=== PATIENT | female | born 2000 | race Caucasian/White ===

== ENCOUNTER 2020-03-28 12:18 | Outpatient (CLI) | payer OTHER, SELFPAY ==
[2020-03-28 13:33] LABS: Basophils Percent Auto 0.4 % (0.2-1.2); Eosinophils Absolute Auto 0.2 K/mm3 (0-0.3); Eosinophils Percent Auto 2.2 % (0-4.4); Hematocrit 38.5 % (37.0-47.0); Hemoglobin 13.2 g/dL (12.0-15.0); Immature Granulocyte Absolute 0.01 K/mm3 (0.00-0.031); Immature Granulocyte Percent A 0.1 % (0-0.5); Lymphocytes Absolute Auto 2.44 K/mm3 (0.9-3.2); Lymphocytes Percent Auto 35.4 % (18.3-44.2); Mean Corpuscular HGB Conc 34.3 g/dl (32-36); Mean Corpuscular Hemoglobin 28.6 pg (26-34); Mean Corpuscular Volume 83.5 fl (80-100); Mean Platelet Volume 9.8 fl (7.4-10.4); Monocytes Absolute Auto 0.5 K/mm3 (0.1-0.6); Monocytes Percent Auto 6.7 % (2.6-8.5); Neutrophils Absolute Auto 3.8 K/mm3 (1.3-6.7); Neutrophils Percent Auto 55.2 % (45.5-73.1); Platelet Count Result 307 k/mm3 (150-375); Red Blood Count 4.61 M/mm3 (4.2-5.4); Red Cell Distribution Width 12.5 % (11.5-14.5); White Blood Count 6.9 K/mm3 (4.5-10.0)
[2020-03-28 13:44] LABS: Alanine Aminotransferase 15 U/L (4-35); Albumin Level 4.6 g/dL (3.7-5.6); Alkaline Phosphatase 54 U/L (45-116); Aspartate Amino Transferase 25 U/L (14-36); Bilirubin,Total 0.4 mg/dL (0.2-1.3); Blood Urea Nitrogen 10 mg/dL (8-21); Calcium 9.3 mg/dL (8.9-10.7); Carbon Dioxide 25 mmol/L (22-30); Chloride 103 mmol/L (98-107); Cholesterol 187 mg/dL (0-200); Estimated Glomerular Filt Rate > 60; Glucose 82 mg/dL (65-105); HDL Direct 80 mg/dL; Potassium 3.7 mmol/L (3.4-5.0); Sodium 137 mmol/L (134-143); Triglycerides 107 mg/dL (<150)
[2020-03-28 13:48] LABS: Hemoglobin A1C 5.5 % (<5.7)
[2020-03-28 13:55] LABS: LDL Cholesterol Direct 88 mg/dL
[2020-03-28 14:39] LABS: Free T4 Free Thyroxine 1.05 ng/mL (0.78-2.19)
== END 2020-03-28 12:19 | disposition home or self-care (01) ==
PROVIDERS: PCP Internal Medicine; Visit Provider Internal Medicine
DX: Z00.00 Encounter for general adult medical examination without abnormal findings (principal)
CPT/HCPCS: 36415; 80053; 80061; 83036; 84439; 84443; 85025

== ENCOUNTER 2020-08-06 10:21 | Outpatient (NON) | payer OTHER, SELFPAY ==
[2020-08-07 13:52] LABS: SARS-CoV-2 RNA PCR Positive
== END 2020-08-06 10:22 ==
PROVIDERS: PCP Internal Medicine; Visit Provider Internal Medicine
DX: U07.1 COVID-19 (principal)
CPT/HCPCS: 87635; C9803; U0003

== ENCOUNTER 2021-01-09 13:46 | Outpatient (CLI) | payer OTHER, SELFPAY | END 2021-01-09 13:47 | disposition home or self-care (01) | LOC: ANHCOVIDVC 13:46 | PROVIDERS: PCP Internal Medicine | DX: Z23 Encounter for immunization (principal) | CPT/HCPCS: 0001A; 91300 ==

== ENCOUNTER 2021-01-30 13:33 | Outpatient (CLI) | payer OTHER, SELFPAY | END 2021-01-30 13:34 | disposition home or self-care (01) | LOC: ANHCOVIDVC 13:33 | PROVIDERS: PCP Internal Medicine | DX: Z23 Encounter for immunization (principal) | CPT/HCPCS: 0002A; 91300 ==

== ENCOUNTER 2021-09-08 17:00 | Outpatient (CLI) | payer OTHER, SELFPAY ==
[2021-09-08 17:23] LABS: Add Urine Microscopic? NO; Appearance Urine Clear (Clear); Bilirubin Urine Negative (Negative); Blood Urine Negative (Negative); Color Urine Yellow (Yellow); Glucose Urine UA Negative (Negative); Ketones Urine Negative (Negative); Leukocyte Esterase Ur Negative LEU/UL (Negative); Nitrate Urine Negative (Negative); Protein Urine Negative (Negative); Specific Grav Ur 1.012 (1.001-1.035); Urobilinogen Urine Negative mg/dL (<2.0)
[2021-09-08 18:04] LABS: Basophils Percent Auto 0.3 % (0.2-1.2); Eosinophils Absolute Auto 0.1 K/mm3 (0-0.3); Eosinophils Percent Auto 1.4 % (0-4.4); Hematocrit 39.2 % (37.0-47.0); Hemoglobin 13.3 g/dL (12.0-15.0); Immature Granulocyte Absolute 0.02 K/mm3 (0.00-0.031); Immature Granulocyte Percent A 0.2 % (0-0.5); Lymphocytes Absolute Auto 3.18 K/mm3 (0.9-3.2); Lymphocytes Percent Auto 31.2 % (18.3-44.2); Mean Corpuscular HGB Conc 33.9 g/dl (32-36); Mean Corpuscular Hemoglobin 28.2 pg (26-34); Mean Corpuscular Volume 83.1 fl (80-100); Mean Platelet Volume 9.4 fl (7.4-10.4); Monocytes Absolute Auto 0.6 K/mm3 (0.1-0.6); Monocytes Percent Auto 6.3 % (2.6-8.5); Neutrophils Absolute Auto 6.2 K/mm3 (1.3-6.7); Neutrophils Percent Auto 60.6 % (45.5-73.1); Platelet Count Result 390 k/mm3 (150-375); Red Blood Count 4.72 M/mm3 (4.2-5.4); Red Cell Distribution Width 12.2 % (11.5-14.5); White Blood Count 10.2 K/mm3 (4.5-10.0)
[2021-09-08 18:27] LABS: Hemoglobin A1C 5.3 % (<5.7)
[2021-09-08 18:29] LABS: Alanine Aminotransferase 19 U/L (4-35); Albumin Level 5.1 g/dL (3.5-5.1); Alkaline Phosphatase 52 U/L (38-126); Anion Gap 11 mmol/L (8-16); Aspartate Amino Transferase 29 U/L (14-36); Bilirubin,Total 0.4 mg/dL (0.2-1.3); Blood Urea Nitrogen 12 mg/dL (7-17); Calcium 9.7 mg/dL (8.4-10.2); Carbon Dioxide 25 mmol/L (22-30); Chloride 100 mmol/L (98-107); Cholesterol 243 mg/dL (0-200); Estimated Glomerular Filt Rate > 60; Glucose 94 mg/dL (65-110); Potassium 3.5 mmol/L (3.4-5.0); Sodium 136 mmol/L (137-145); Triglycerides 122 mg/dL (<150)
[2021-09-08 18:55] LABS: Free T4 Free Thyroxine 1.16 ng/mL (0.78-2.19)
[2021-09-08 19:00] LABS: LDL Cholesterol Direct 103 mg/dL
[2021-09-08 19:08] LABS: HDL Direct 118 mg/dL
[2021-09-13 18:57] LABS: Gliadin AB, IgG <1.0 U/mL (<15.0); Reticulin IgA Negative (Negative); TTG IGA AB <1.0 U/mL (<15.0)
== END 2021-09-08 17:01 | disposition home or self-care (01) ==
LOC: ANHLAB 17:03
PROVIDERS: PCP Internal Medicine; Visit Provider Internal Medicine
DX: R10.9 Unspecified abdominal pain (principal); Z79.899 Other long term (current) drug therapy
CPT/HCPCS: 36415; 80053; 80061; 81003; 83036; 83516; 84439; 84443; 85025; 86255

== ENCOUNTER 2021-10-06 09:46 | Outpatient (CLI) | payer OTHER, SELFPAY ==
--- NOTE | ~2021-10-06 | US_ITS ---
EXAMINATION: US pelvic complete w TV EXAM DATE: 10/06/2021 12:19 INDICATION: R10.2 - Pelvic and perineal pain TECHNIQUE: Pelvic transabdominal and transvaginal sonogram was performed. There are multiple graysca le and Doppler images available for interpretation. There is no prior study for comparison. FINDINGS: Uterus measures 6.7 x 4.5 x 2.3 cm, is anteverted and morphologically normal. Endometrial stripe measures 2 mm, within normal limits. There is no free pelvic fluid. Right adnexa: The ovary measures 3.1 x 2.2 x 1.4 cm and is morphologically normal. Ovarian vascular f low confirmed. Left adnexa: The ovary measures 3.3 x 2.6 x 2.2 cm and is morphologically normal. Ovarian vascular fl ow confirmed. IMPRESSION: 1. Unremarkable pelvic ultrasound exam. Reviewed, dictated and finalized at location B. ESS CAMERA OPERATOR
--- NOTE | ~2021-10-06 | US_ITS ---
EXAMINATION: US abdomen complete EXAM DATE: 10/06/2021 10:40 INDICATION: R10.9 - Unspecified abdominal pain. TECHNIQUE: Multiple grayscale and Doppler images of the complete abdomen were obtained (by a technolo gist who performed the scan) and subsequently reviewed. There is no prior study for comparison. FINDINGS: The abdominal aorta is normal in caliber. Visualized portion IVC is patent. The pancreatic head a nd body are normal in appearance. The pancreatic tail is not visualized. The liver has normal echogenicity and contour. There are no focal liver lesions identified. There is no evidence of intrahepatic biliary duct dilation. Portal venous flow was seen in the hepatopedal , normal direction and has normal Doppler waveform. Common bile duct measures 2 mm, which is normal. The gallbladder wall is normal in thickness, with ex pected amount of distention. No sonographic evidence of pericholecystic fluid. There is no cholelit hiases. Technologist performing exam reports patient did not demonstrate sonographic Zhou's sign. Please note that this sign is less reliable in patients who have received pain medication. Right kidney: There is normal contour and echogenicity. It measures 12.5 x 5.8 x 3.6 centimeters. There are no focal renal lesions identified. There is no hydronephrosis. Left kidney: There is normal contour and echogenicity. It measures 12.5 x 3.9 x 5.3 centimeters. T here are no focal renal lesions identified. There is no hydronephrosis. The spleen measures 9.4 centimeters and is morphologically normal. IMPRESSION: Unremarkable complete abdominal ultrasound exam. Reviewed, dictated and finalized at location B. ER OPERATOR
== END 2021-10-06 09:47 | disposition home or self-care (01) ==
LOC: ANHIMG 09:47
PROVIDERS: PCP Internal Medicine; Visit Provider Internal Medicine
DX: R10.9 Unspecified abdominal pain (principal)
CPT/HCPCS: 76700; 76830; 76856

== ENCOUNTER 2021-10-19 12:09 | Outpatient (CLI) | payer OTHER, SELFPAY ==
[2021-10-19 14:56] LABS: Influenza A QL RT-PCR Negative (Negative); Influenza B QL RT-PCR Negative (Negative); SARS-CoV-2 RNA PCR Negative (Negative)
== END 2021-10-19 12:10 | disposition home or self-care (01) ==
LOC: CHSLAB 12:11
PROVIDERS: PCP Internal Medicine; Visit Provider Internal Medicine
DX: R68.89 Other general symptoms and signs (principal); Z20.822 Contact with and (suspected) exposure to COVID-19
CPT/HCPCS: 87502; C9803; U0003; U0005

== ENCOUNTER 2022-02-15 17:21 | Outpatient (CLI) | payer OTHER, SELFPAY ==
[2022-02-17 15:41] LABS: NIL 0.01 IU/mL; Quantiferon TB Plus, 1T NEGATIVE (NEGATIVE)
== END 2022-02-15 17:22 | disposition home or self-care (01) ==
PROVIDERS: PCP Internal Medicine; Visit Provider Internal Medicine
DX: Z11.1 Encounter for screening for respiratory tuberculosis (principal)
CPT/HCPCS: 36415; 86480

== ENCOUNTER 2023-03-07 13:43 | Outpatient (CLI) | payer OTHER, SELFPAY ==
[2023-03-07 14:51] LABS: Basophils Percent Auto 0.5 % (0.2-1.2); Eosinophils Absolute Auto 0.1 K/mm3 (0-0.3); Hematocrit 40.1 % (37.0-47.0); Immature Granulocyte Absolute 0.02 K/mm3 (0.00-0.031); Immature Granulocyte Percent A 0.2 % (0-0.5); Lymphocytes Absolute Auto 2.35 K/mm3 (0.9-3.2); Lymphocytes Percent Auto 26.6 % (18.3-44.2); Mean Corpuscular HGB Conc 32.4 g/dl (32-36); Mean Corpuscular Hemoglobin 27.5 pg (26-34); Mean Platelet Volume 9.9 fl (7.4-10.4); Monocytes Absolute Auto 0.5 K/mm3 (0.1-0.6); Monocytes Percent Auto 5.9 % (2.6-8.5); Neutrophils Absolute Auto 5.8 K/mm3 (1.3-6.7); Neutrophils Percent Auto 65.8 % (45.5-73.1); Platelet Count Result 403 k/mm3 (150-375); Red Blood Count 4.72 M/mm3 (4.2-5.4); Red Cell Distribution Width 13.3 % (11.5-14.5); White Blood Count 8.8 K/mm3 (4.5-10.0)
[2023-03-07 16:03] LABS: LDL Cholesterol Direct 78 mg/dL
[2023-03-07 16:18] LABS: Alanine Aminotransferase 22 U/L (6-35); Albumin Level 4.5 g/dL (3.5-5.1); Alkaline Phosphatase 53 U/L (38-126); Anion Gap 9 mmol/L (8-16); Aspartate Amino Transferase 30 U/L (14-36); Bilirubin,Total 0.5 mg/dL (0.2-1.3); Blood Urea Nitrogen 15 mg/dL (7-17); Calcium 8.6 mg/dL (8.4-10.2); Carbon Dioxide 27 mmol/L (22-30); Chloride 101 mmol/L (98-107); Cholesterol 204 mg/dL (0-200); Estimated Glomerular Filt Rate > 60; Glucose 84 mg/dL (65-110); Potassium 4.1 mmol/L (3.4-5.0); Sodium 137 mmol/L (137-145); Triglycerides 102 mg/dL (<150)
[2023-03-07 16:30] LABS: Free T4 Free Thyroxine 1.15 ng/mL (0.78-2.19); Vitamin D 25 Hydroxy 50.1 ng/mL
[2023-03-07 18:44] LABS: HDL Direct 112 mg/dL
[2023-03-07 22:53] LABS: Hemoglobin A1C 5.5 % (<5.7)
[2023-03-11 14:18] LABS: NIL 0.03 IU/mL; Quantiferon TB Plus, 1T NEGATIVE (NEGATIVE); TB1-NIL 0.02 IU/mL; TB2-NIL 0.02 IU/mL
== END 2023-03-07 13:44 | disposition home or self-care (01) ==
PROVIDERS: PCP Internal Medicine; Visit Provider Internal Medicine
DX: R53.83 Other fatigue (principal); R35.89 Other polyuria; Z11.1 Encounter for screening for respiratory tuberculosis; Z79.899 Other long term (current) drug therapy
CPT/HCPCS: 36415; 80053; 80061; 82306; 82607; 82746; 83036; 84439; 84443; 85025; 86480

== ENCOUNTER 2023-06-06 11:59 | Outpatient (CLI) | payer OTHER, SELFPAY ==
[2023-06-06 12:49] LABS: CRP 0.5 mg/dL (<1.0)
[2023-06-11 20:56] LABS: ANCA Screen Negative (Negative); Myeloperoxidase Ab <1.0 AI (<1.0); Proteinase-3 Ab <1.0 AI (<1.0); S cerevisiae Ab (IgA) 11.5 U (<=20.0); S cerevisiae Ab (IgG) 11.3 U (<=20.0)
[2023-06-14 09:27] LABS: Calprotectin, Stool 33
== END 2023-06-06 12:00 | disposition home or self-care (01) ==
PROVIDERS: PCP Internal Medicine; Visit Provider Internal Medicine Gastroenterology
DX: R19.7 Diarrhea, unspecified (principal)
CPT/HCPCS: 36415; 83993; 86036; 86140; 86671

== ENCOUNTER 2023-07-01 04:29 | Day surgery (SDC) | payer OTHER, SELFPAY ==
[2023-06-16 16:06] VITALS: BMI 20.3
--- NOTE | 2023-06-30 20:04 | PM.HPGS ---
History of Present Illness History of Present Illness Consent: Risks, benefits, and alternatives have been discussed and questions answered. Patient agrees to proceed with procedure. Chief complaint: abdominal pain Narrative: Shwetha Bridges is a 22 year old female who has been troubled with several gastro intestinal issues.? Tender in the epigastric area almost every day all day.? It is sensitive to the touch.? Sometimes she is more uncomfortable if she eats spicy foods.? She does not vomit.? Her weight has been stable.? She also has pains in the upper abdomen--a gas, bloating discomfort which seems to be more on the right side than the left.? It will double her over at times.? When this occurs which may or may not be related to meals she will then had the urge to have a bowel movement which is usually diarrhea, sometimes explosive.? There is no blood her stools. Review of Systems Review of Systems: All systems reviewed & are unremarkable except as noted in HPI and below PMFSH Past Medical History Medical History Abdominal pain BMI 20.0-20.9, adult Diarrhea Flatulence/gas pain/belching Loose stools On senior care drug therapy Pelvic pain Persistent headaches Routine adult health maintenance Stomach pain Tuberculosis screening Visual field [place] Family History Family History Mother Hyperlipidemia Atrial fibrillation, controlled Social History Social History Smoking status: Never smoker Second hand tobacco smoke exposure: No Alcohol intake: current Drinks per week: 2 Substance use: never Substance use type: does not use Lack of Transportation: No Lack of Food: Never True Current Housing: I Have Housing Concerned About Future Housing: No Difficulty Paying Gas/Electric Bills: No Difficulty Paying for Meds: No Education: High School Diploma/GED Difficulty w/ Childcare or Family Care: No Living arrangements: with family Occupation/Education: occupation Gender identity (if verbalized by the patient): Female Sexual Orientation (if Verbalized by the Patient): Straight or Heterosexual Spiritual care concerns: No Meds Home Medications and Allergies Home Medications Medication Instructions Recorded Confirmed Type adapalene 0.1 %-benzoyl peroxide See Rx Instructions .Route 10/08/22 06/16/23 Rx 2.5 % topical gel with pump .COMPLEX #45 grams drospirenone 3 mg-ethinyl 1 tablet PO DAILY 06/16/23 06/16/23 History estradiol 0.03 mg tablet sertraline 50 mg tablet 50 mg PO DAILY 06/16/23 06/16/23 History tretinoin 0.05 % topical gel 1 applic topical QHS #45 grams 06/22/23 Rx Allergies Allergy/AdvReac Type Severity Reaction Status Date / Time No Known Allergies Allergy Verified 07/01/23 12:56 Exam Const: General: alert Orientation/consciousness: patient oriented x3 Resp: Auscultation: clear to auscultation bilaterally Cardio: Rhythm: regular rhythm GI: GI Palp: Yes Soft to palpation and No Tenderness to palpation present (GI) Neuro: General: patient oriented x3 Assessment and Plan Assessment and plan (1) Abdominal pain: Qualifiers: Abdominal location: periumbilical Qualified Code(s): R10.33 - Periumbilical pain Code(s): R10.9 - Unspecified abdominal pain Status: Acute Assessment and Plan: EGD with possible biopsy or dilatation or cautery.
[2023-07-01 12:57] VITALS: BP 128/76; PULSE 72; RESP 20; TEMP 36.5; O2SAT 100
[2023-07-01] MEDS: LACTATED RINGERS 1,000 ML 150 ML IV CONT (13:11)
--- NOTE | 2023-07-01 14:01 | WPDANESEPPF ---
Anes - Initial Pre Proc Eval Procedure: Operation Date: 07/01/23 14:00 Proposed Procedures p Esophagogastroduodenoscopy - Guero Pierce MD Date/Time: 07/01/23 14:01 Surgeon: Guero Pierce MD Pre Op Diagnosis: abdominal pain Patient Data Age: 22 Gender: F Height: 1.7 m Weight: 60.5 kg Last Vital Signs Temp 97.7 F 07/01/23 12:57 Pulse 72 07/01/23 12:57 Resp 20 07/01/23 12:57 BP 128/76 07/01/23 12:57 Pulse Ox 100 07/01/23 12:57 O2 Del Method Room Air 07/01/23 12:57 Allergies Allergy/AdvReac Type Severity Reaction Status Date / Time No Known Allergies Allergy Verified 07/01/23 12:56 Home Medications Medication Instructions Recorded Confirmed Type adapalene 0.1 %-benzoyl peroxide See Rx Instructions .Route 10/08/22 06/16/23 Rx 2.5 % topical gel with pump .COMPLEX #45 grams drospirenone 3 mg-ethinyl 1 tablet PO DAILY 06/16/23 06/16/23 History estradiol 0.03 mg tablet sertraline 50 mg tablet 50 mg PO DAILY 06/16/23 06/16/23 History tretinoin 0.05 % topical gel 1 applic topical QHS #45 grams 06/22/23 Rx Patient hx anesthesia problems: none Family hx anesthesia problems: none Results Review: All pre-operative results and documents have been reviewed as part of the pre-operative evaluation. [facility] Past Medical History Medical History Abdominal pain BMI 20.0-20.9, adult Diarrhea Flatulence/gas pain/belching Loose stools On assisted drug therapy Pelvic pain Persistent headaches Routine adult health maintenance Stomach pain Tuberculosis screening Visual field [place] Family History Family History Mother Hyperlipidemia Atrial fibrillation, controlled Social History Social History Smoking status: Never smoker Second hand tobacco smoke exposure: No Alcohol intake: current Drinks per week: 2 Substance use: never Substance use type: does not use Lack of Transportation: No Lack of Food: Never True Current Housing: I Have Housing Concerned About Future Housing: No Difficulty Paying Gas/Electric Bills: No Difficulty Paying for Meds: No Education: High School Diploma/GED Difficulty w/ Childcare or Family Care: No Living arrangements: with family Occupation/Education: occupation Gender identity (if verbalized by the patient): Female Sexual Orientation (if Verbalized by the Patient): Straight or Heterosexual Spiritual care concerns: No Anes - Eval Final PreProcedure Day of Procedure 07/01/23 14:01 Patient weight: normal Heart: regular rate and rhythm Lungs: clear to auscultation Airway: Mallampati scale class II Neurological: alert and oriented Last oral intake: >/= 8 hours ASA classification: II Emergent: no Anesthetic plan: proceed Anesthesia type and monitoring: general GIVS and standard monitoring Results Review: All pre-operative results and documents have been reviewed as part of the pre-operative evaluation. Informed Consent: The patient's anesthetic plan and its attendant risks and benefits were discussed with the patient/family/POA. Questions were solicited and answers provided to the satisfaction of the patient/family/POA.
[2023-07-01 14:15] VITALS: BP 108/69; BP 85/48; PULSE 74; PULSE 81; RESP 21; RESP 24; O2SAT 97; O2SAT 99
[2023-07-01 14:25] VITALS: BP 110/68; PULSE 70; RESP 21; O2SAT 98
== END 2023-07-01 14:37 | disposition home or self-care (01) ==
PROVIDERS: PCP Internal Medicine; Visit Provider Internal Medicine Gastroenterology
PROC: 0DJ08ZZ Inspection of Upper Intestinal Tract, Via Natural or Artificial Opening Endoscopic (ICD-10-PCS; CPT 43235; principal; 2023-07-01 14:00)
DX: R10.13 Epigastric pain (principal)
CPT/HCPCS: 43239; 87081; 88305; J2704; J7120

== ENCOUNTER 2025-03-30 09:27 | Outpatient (CLI) | payer OTHER, SELFPAY ==
[2025-03-30 10:18] LABS: Basophils Percent Auto 0.4 % (0.2-1.2); Eosinophils Absolute Auto 0.2 K/mm3 (0-0.3); Eosinophils Percent Auto 2.7 % (0-4.4); Hematocrit 37.7 % (37.0-47.0); Hemoglobin 12.4 g/dL (12.0-15.0); Immature Granulocyte Absolute 0.03 K/mm3 (0.00-0.031); Immature Granulocyte Percent A 0.4 % (0-0.5); Lymphocytes Absolute Auto 3.06 K/mm3 (0.9-3.2); Lymphocytes Percent Auto 36.4 % (18.3-44.2); Mean Corpuscular HGB Conc 32.9 g/dl (32-36); Mean Corpuscular Hemoglobin 27.7 pg (26-34); Mean Corpuscular Volume 84.3 fl (80-100); Mean Platelet Volume 9.6 fl (7.4-10.4); Monocytes Absolute Auto 0.6 K/mm3 (0.1-0.6); Neutrophils Absolute Auto 4.5 K/mm3 (1.3-6.7); Neutrophils Percent Auto 53.1 % (45.5-73.1); Platelet Count Result 326 k/mm3 (150-375); Red Blood Count 4.47 M/mm3 (4.2-5.4); Red Cell Distribution Width 12.6 % (11.5-14.5); White Blood Count 8.4 K/mm3 (4.5-10.0)
[2025-03-30 10:36] LABS: Add Urine Microscopic? YES; Alanine Aminotransferase 17 U/L (6-35); Albumin Level 4.3 g/dL (3.5-5.1); Alkaline Phosphatase 46 U/L (38-126); Anion Gap 6 mmol/L (4-12); Appearance Urine Clear (Clear); Aspartate Amino Transferase 30 U/L (14-36); Bacteria Urine 1+ /hpf; Bilirubin Urine Negative (Negative); Bilirubin,Total 0.5 mg/dL (0.2-1.3); Blood Urea Nitrogen 10 mg/dL (7-17); Blood Urine Negative (Negative); Calcium 9.4 mg/dL (8.4-10.2); Carbon Dioxide 27 mmol/L (22-30); Chloride 103 mmol/L (98-107); Cholesterol 198 mg/dL (0-200); Color Urine Yellow (Yellow); Estimated Glomerular Filt Rate > 60; Glucose 92 mg/dL (65-110); Glucose Urine UA Negative (Negative); HDL Direct 98 mg/dL; Ketones Urine Negative (Negative); Leukocyte Esterase Ur 1+ LEU/UL (Negative); Need Manual Microscopic Reviewed; Nitrate Urine Negative (Negative); Non Pathogenic Casts 0-2; Potassium 3.6 mmol/L (3.4-5.0); Protein Urine Negative (Negative); RBC Urine 0-2 /hpf (0-2); Sodium 136 mmol/L (137-145); Specific Grav Ur 1.016 (1.001-1.035); Squamous Epithelial Cell Urine Few /hpf (Few); Total Protein 7.5 g/dL (6.3-8.2); Triglycerides 131 mg/dL (<150); Urobilinogen Urine 0.2 mg/dL (<2.0); WBC Urine 0-5 /hpf (0-3)
[2025-03-30 10:49] LABS: Free T4 Free Thyroxine 0.99 ng/dL (0.78-2.19); LDL Cholesterol Direct 72 mg/dL; Vitamin D 25 Hydroxy 49.4 ng/mL
[2025-03-30 11:20] LABS: Hemoglobin A1C 5.2 % (<5.7)
[2025-03-30 11:42] LABS: Folic Acid 9.1 ng/mL (2.76->20)
== END 2025-03-30 09:28 | disposition home or self-care (01) ==
PROVIDERS: PCP Internal Medicine; Visit Provider Internal Medicine
DX: Z79.899 Other long term (current) drug therapy (principal); Z00.00 Encounter for general adult medical examination without abnormal findings; R53.83 Other fatigue; E55.9 Vitamin D deficiency, unspecified
CPT/HCPCS: 36415; 80053; 80061; 81001; 82306; 82607; 82746; 83036; 84439; 84443; 85025; 87086

== ENCOUNTER 2025-09-05 13:16 | Outpatient (CLI) | payer OTHER, SELFPAY | END 2025-09-05 13:17 | disposition home or self-care (01) | LOC: ANHLAB 13:17 | PROVIDERS: PCP Internal Medicine; Visit Provider Internal Medicine | DX: Z11.1 Encounter for screening for respiratory tuberculosis (principal) | CPT/HCPCS: 86480 ==